=== PATIENT | male | born 1985 | race Two or more races ===

== ENCOUNTER 2018-04-12 05:31 | Emergency (ER) | payer SELFPAY ==
[~2018-04-12] VITALS: Ht 162.6 cm; Wt 63.5 kg
[2018-04-12] MEDS ORDERED: PHENYTOIN SODI100 MG ORAL (05:37)
--- NOTE | 2018-04-12 05:49 | Emergency Room Report ---
History of Present Illness General Chief Complaint: Seizure Source: Patient, Friend Present Illness HPI Is a 32-year-old male with history of seizure. He presents with chief point of seizure. Witnessed by his friends. Tonic-clonic in nature. Lasting for a few minutes. He said that he had a stomach upset and was vomiting. Did not able to keep his pills down tonight. He has seizure infrequently maybe once a year. Not driving. No other complaint. No injury. No tongue laceration. No incontinence of bowel or urine. Allergies: Coded Allergies: No Known Allergies (Unverified , 04/12/18) Patient History Past Medical History: see triage record, old chart reviewed, seizures Past Surgical History: other Social History: Denies: smoking Immunizations: other Reviewed Nursing Documentation: PMH: Agreed; PSxH: Agreed Nursing Documentation-PMH Hx Seizures: Yes Review of Systems Eye: Denies: eye pain, blurred vision ENT: Denies: ear pain, nose congestion, throat swelling Respiratory: Denies: cough, shortness of breath Cardiovascular: Denies: chest pain, palpitations Gastrointestinal: Denies: abdominal pain, diarrhea, nausea, vomiting Musculoskeletal: Denies: back pain, joint pain Skin: Denies: rash Neurological: Denies: headache, numbness Endocrine: Denies: increased thirst, increased urine Hematologic/Lymphatic: Denies: easy bruising All Other Systems: negative except mentioned in HPI Physical Exam Vital Signs Date Time Temp Pulse Resp B/P (MAP) Pulse Ox O2 Delivery O2 Flow Rate FiO2 04/12/18 05:32 98.7 119 13 148/66 97 Room Air 98.8 vitals with tachycardia Sp02 EP Interpretation: reviewed, normal General Appearance: well appearing, no apparent distress, alert Head: normocephalic, atraumatic Eyes: bilateral eye PERRL, bilateral eye EOMI ENT: hearing grossly normal, normal pharynx Neck: full range of motion, supple, no meningismus Respiratory: chest non-tender, lungs clear, normal breath sounds Cardiovascular #1: regular rate, rhythm, no murmur Gastrointestinal: normal bowel sounds, non tender, no mass, no organomegaly, no bruit, non-distended Musculoskeletal: back normal, gait/station normal, normal range of motion Psychiatric: mood/affect normal Skin: warm/dry Medical Decision Making Diagnostic Impression: Primary Impression: Epileptic seizure, generalized ER Course Patient presents with a breakthrough seizure secondary to subtherapeutic Dilantin level. Patient is loaded and will be discharged. No evidence of abnormality. No neurological deficit. I would not do a DMV report since he is not driving. Last Vital Signs Date Time Temp Pulse Resp B/P (MAP) Pulse Ox O2 Delivery O2 Flow Rate FiO2 04/12/18 05:39 119 13 Room Air 04/12/18 05:32 98.7 148/66 97 98.8 Status: improved Disposition: HOME, SELF-CARE Condition: Stable Patient Instructions: Seizure, Adult Additional Instructions: Take your Dilantin/phenytoin. Follow-up your doctor in a week. Return if worse. BILLY BARRERA M.D. Apr 12, 2018 05:49
[2018-04-12] MEDS ORDERED: Phenytoin 500 MG in NS 110 ML IVPB ONE (06:30)
[2018-04-12 06:34] VITALS: BP 106/66
[2018-04-12 07:12] VITALS: BP 106/66
== END 2018-04-12 07:12 | disposition home or self-care (01) ==
LOC: EMR 05:50
DX: G40.409 Other generalized epilepsy and epileptic syndromes, not intractable, without status epilepticus (principal)
CPT/HCPCS: 36415; 80185; 96365; 99284; J1165; 96375